=== PATIENT | male | born 1975 | race Caucasian/White ===

== ENCOUNTER 2018-09-29 02:20 | Emergency (ER) | payer OTHER, SELFPAY ==
[2018-09-29 02:21] VITALS: BP 161/106; PULSE 79; RESP 18; TEMP 37; O2SAT 94; BMI 30.8
[2018-09-29 02:23] VITALS: RESP 18
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
--- NOTE | 2018-09-29 02:44 | ED.DEP ---
ED Disposition - Plan for ED Patient: Instructions: ED Keratitis UV Prescriptions: Hydrocodone Bitart/Apap 5-325 [[place] 5MG-325MG] 1 tab PO Q6H PRN PRN 3 Days #10 tab PRN Reason: Pain Referrals: Care Physician,No Primary [Primary Care Provider] - Gloria Brenner MD [STAFF PHYSICIAN] -
[2018-09-29] MEDS: Fluorescein 1 MG STRIP 1 STRIP EACH EYE (02:46)
[2018-09-29] MEDS: Tetracaine 0.5% Ophthalmic Bottle 1 DRP EACH EYE (02:46)
[2018-09-29] MEDS: Gentamicin Sulfate 1 OPTH.BTL 1 DRP EACH EYE (02:52)
[2018-09-29] MEDS: HYDROcodone Bitartrate/Apap 5/325 Tablet PO (02:52)
[2018-09-29 02:56] VITALS: PULSE 73; RESP 20; O2SAT 99
--- NOTE | 2018-09-29 02:56 | ED.RN ---
PER DR CEBALLOS VISUAL ACUITY NOT NEEDED
--- NOTE | 2018-09-29 02:56 | ED.RN ---
THIS NURSE REVIEWED D/C INSTRUCTIONS WITH PT AND VISITOR. BOTH VERBALIZED UNDERSTANDING OF INSTRUCTIONS. PT DENIES FURTHER NEEDS OR QUESTIONS AT THIS TIME. PT AMBULATES FROM ROOM HOLDING ARM OF VISITOR
== END 2018-09-29 02:57 | disposition home or self-care (01) ==
PROVIDERS: Emergency Provider Emergency Medicine
DX: H16.8 Other keratitis (principal); Z72.0 Tobacco use
CPT/HCPCS: 99282

== ENCOUNTER 2025-05-05 18:01 | Emergency (ER) | payer OTHER, SELFPAY ==
[2025-05-05 18:02] VITALS: BP 148/96; PULSE 116; RESP 16; TEMP 35.7; O2SAT 95; BMI 33.0
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
[2025-05-05] MEDS: HYDROcodone Bitartrate/Apap 5/325 Tablet PO (19:51)
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
[2025-05-05 20:51] VITALS: BP 140/74; PULSE 90; RESP 16; TEMP 36.6; O2SAT 96
== END 2025-05-05 20:52 | disposition home or self-care (01) ==
PROVIDERS: Emergency Provider Emergency Medicine; Visit Provider Emergency Medicine
DX: S09.90XA Unspecified injury of head, initial encounter (principal); S62.316A Displaced fracture of base of fifth metacarpal bone, right hand, initial encounter for closed fracture; S16.1XXA Strain of muscle, fascia and tendon at neck level, initial encounter; S60.512A Abrasion of left hand, initial encounter; S60.222A Contusion of left hand, initial encounter; F17.200 Nicotine dependence, unspecified, uncomplicated; V43.52XA Car driver injured in collision with other type car in traffic accident, initial encounter
CPT/HCPCS: 29125; 70450; 72125; 73130; 99282

== ENCOUNTER → 2025-05-10 | Outpatient (CLI) | payer OTHER, SELFPAY ==
--- OUTSIDE RECORDS SUMMARY | 2025-05-10 13:12 | XMS RPT_ITS | CCD ---
Author Organization [facility] VAMP CREASER [facility] Results Test Name Value Interpretation Reference Range Facil ity Discharge Instructionon 09-15 Discharge Instruction [facility] Medical Records Department [address] [place] [address] Discharge Instruction 09/29/18 0244 MR#: [id number] Acct: [id number] Name: ART ONEILL Rep #: [id number] : 1975 43 From: Sav Gan MD PCP: Care Physician, No Primary Status: PRE ER ED Disposition - Plan for ED Patient: Instructions: ED Keratitis UV Prescriptions: Hydrocodone Bitart/Apap 5-325 [[place] 5MG-325MG] 1 tab PO Q6H PRN PRN 3 Days #10 tab PRN Reason: Pain Referrals: Care Physician,No Primary [Primary Care Provider] - Gloria Brenner MD [STAFF PHYSICIAN] - What to do if you have Problems For any increased pain, shortness of breath, bleeding, nausea or vomiting, chest pain, or any unexpected problems, contact your Primary Care Provider. Call [facility] ([phone]) or report to the closest Emergency Room. Call 911 if necessary. 09/29/185 Date Sav Gan MD Cosigner Signature (If Indicated): Date CC: No Primary Care Physician Normal [facility] Emergency Department Summary on 09-29-2018 Emergency Department Summary [facility] Medical Records Department [address] [place] [address] Emergency Department Summary 09/29/18 0241 MR#: [id number] Acct: [id number] Name: ART ONEILL Rep #: [id number] : 1975 43 From: Sav Gan MD [...] severe bilateral ultraviolet keratitis. Patient was given [place] here for pain as well as a [...] Ultraviolet keratitis This note was generated with [employer] dictation software. It may contain incorrect words, [...] your Primary Care Provider. Call [facility] ([phone]) or report to the closest Emergency Room. Call 911 if necessary. 09/29/18 0244 Date Sav Gan MD Cosigner Signature (If Indicated): Date CC: No Primary Care Physician Normal [facility] Summary Purpose Family History No Family History Records Found Advance Directives No Advanced Directives Records Found Additional Source Comments (unrecognized sect ion and content) No Status Records Found INFORMATION SOURCE (unrecogn ized section and content) DATE CREATED AUTHOR 10/09/2018 [facility] FOR RECORDS PERTAINING TO PATIENTS WHO [...] BE BASED ON THE PRIMARY CLINICAL RECORDS. [employer] provides no warranty or guarantee of the accuracy or completeness of information in this document.
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
== END | disposition home or self-care (01) ==
LOC: CT 13:07
PROVIDERS: Referring Provider Physician Assistant Surgical; Visit Provider Physician Assistant Surgical
DX: S62.316A Displaced fracture of base of fifth metacarpal bone, right hand, initial encounter for closed fracture (principal)
CPT/HCPCS: 73200